=== PATIENT | male | born 1940 | race African-American/Black ===

== ENCOUNTER 2016-10-15 20:22 | Inpatient (IN) ==
[2016-10-15] MEDS ORDERED: hydrALAZINE 20 MG/1 ML VIAL IV STA (20:46)
[2016-10-15] MEDS ORDERED: ONDANSETRON ODT 4 MG TABLET PO STA (20:46)
[2016-10-15] MEDS ORDERED: NITROGLYCERIN 2% OINT 1 INCH/GM PACK TOP STA (20:49)
[2016-10-15] MEDS ORDERED: FUROSEMIDE 40 MG/4 ML VIAL IV STA (20:49)
--- NOTE | 2016-10-15 20:55 | Emergency Department Note ---
Livia Whyte Brittany, am scribing for, and in the presence of, Darrick Chandra MD 20:55. Corazon Whyte Charles R, MD, personally performed the services described in this documentation, ascribed by Carey Bhakta in my presence, and it is both accurate and complete . Arrival - Arrival Chief Complaint: Dizziness Stated Complaint: DIZZY/THROAT HURTS ED Nursing Triage Note: C/O Generalized weakness/dizziness/nausea/vomiting. 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 Pt reports that after he ate dinner the room started spinning and he started feeling weak. +active vomiting at time of triage- pt reports that this is the first time he has vomited. Pt reports that he was outdoors all day [place] Mode of Arrival: Wheelchair Limitations: No Limitations Source: Patient Time Seen by Provider: 10/15/16 20:40 - History of Present Illness HPI Narrative: This is a 76 y/o black male,who presents to the ED for further evaluation of hypertension which started earlier today. He states after eating dinner he started to become dizzy. He denies any SOB or chest pain. He states he no longer takes BP meds secondary to running out of them. He denies numbness or tingling to the extremities or face, but notes generalized weakness. Pt has no other complaints/pain in the ED at this time. Pt denies a PMHx. Pt denies a surgical Hx. Pt denies a family medical Hx. Pt denies a social Hx. Onset (ago): hour(s) (Earlier today) Consistency: constant Severity: moderate Allergies/Adverse Reactions: Allergies Allergy/AdvReac Type Severity Reaction Status Date / Time No Known Allergies Allergy Verified 10/15/16 20:28 Home Medications: Home Medications Medication Instructions Recorded Confirmed Type No Known Home Medications [No 10/15/16 10/15/16 History Known Home Medications] Medical,Surgical,& Family Hx - Social History Smoking Status: Never smoker Frequency of Alcohol Use: None Type of Drug Use: None Exam Vital Signs: Vital Signs Temperature 97.7 F 10/15/16 20:29 Pulse Rate 62 10/15/16 20:40 Respiratory Rate 18 10/15/16 20:40 Blood Pressure 210/127 10/15/16 20:40 O2 Sat by Pulse Oximetry 98 10/15/16 20:40 - General General appearance: alert, in no apparent distress - Head Head exam: Present: atraumatic, normocephalic, normal inspection - Eye Eye exam: Present: normal appearance, PERRL, EOMI. Absent: nystagmus, miosis, mydriasis - ENT ENT exam: Present: normal exam, normal oropharynx, mucous membranes moist, TM's normal bilaterally, normal external ear exam - Neck Neck exam: Present: normal inspection, full ROM, trachea midline. Absent: tenderness, meningismus, lymphadenopathy, thyromegaly - Chest Chest inspection: Present: normal inspection, symmetric chest wall rise. Absent : tenderness, rash, abscess - Respiratory Respiratory exam: Present: normal lung sounds bilaterally. Absent: prolonged expiratory phase, rales, respiratory distress, rhonchi, stridor, wheezes - Cardiovascular Cardiovascular exam: Present: normal rhythm, bradycardia, normal heart sounds. Absent: murmur, rubs, gallop, clicks, JVD - Abdominal Exam Abdominal exam: Present: soft, normal bowel sounds. Absent: distention, tenderness, guarding, rebound, rigidity - Rectal Exam Rectal exam: Present: deferred - Extremities Exam Extremities exam: Present: normal capillary refill (+2 pitting edema). Absent: normal inspection, full ROM, tenderness, pedal edema, joint swelling, calf tenderness - Back Exam Back exam: Present: normal inspection, full ROM. Absent: tenderness, muscle spasm, rashes - Neurological Exam Neurological exam: Present: alert, oriented X3, CN II-XII intact. Absent: motor sensory deficit - Psychiatric Psychiatric exam: Present: normal affect, normal mood. Absent: depressed, agitated, anxious, flat affect, manic - Skin Skin exam: Present: warm, dry, intact, normal color. Absent: rash, cyanosis, diaphoresis, erythema, pallor, mottled Course - Consultations Consultation #1: Hospitalist will admit patient Time: 23:01 Results - Labs CBC & BMP: 10/15/16 20:52 10/15/16 20:52 Lab Results: I have reviewed the patients labs Critical Care Time Critical Care Time: Yes Total Critical Care Time: 60 Disposition Clinical Impression: Hypertensive urgency, Near syncope, Elevated troponin, Renal insufficiency Case discussed with: patient, patient's family Disposition: Still a Patient Condition: Stable Time of Disposition: 23:04
[2016-10-15] MEDS ORDERED: NITROGLYCERIN 2% OINT 1 INCH/GM PACK TOP ONE (21:03)
[2016-10-15] MEDS ORDERED: FUROSEMIDE 40 MG/4 ML VIAL ONE (21:04)
[2016-10-15] MEDS ORDERED: ONDANSETRON ODT 4 MG TABLET PO ONE (21:04)
[2016-10-15] MEDS ORDERED: hydrALAZINE 20 MG/1 ML VIAL ONE (21:04)
[2016-10-15 21:19] LABS: Basophils % 0.6 % (0.0-0.8); Eosinophils # 0.3 10*3/uL (0.0-0.87); Hematocrit 39.7 VOL% (42.0-52.0); Hemoglobin 13.1 GM/DL (14.0-18.0); Immature Granulocytes % 0.2 %; Immature Granulocytes Absolute 0.01 #; Lymphocytes # 2.7 10*3/uL (1.4-4.0); Lymphocytes % 41.2 % (21.2-54.2); Mean Corpuscular Hemoglobin 30 PG (27-34); Mean Corpuscular Volume 89.8 FL (87-102); Mean Platelet Volume 10.6 FL (9.6-12.0); Monocytes # 0.6 10*3/uL (0.11-0.8); Monocytes % 8.5 % (1.7-12.7); Neutrophils % 45.5 % (38.7-73.9); Platelet Count 236 T/CUMM (130-400); Red Blood Count 4.42 MC/CUMM (3.8-5.5); Red Cell Distribution Width 15.6 % (9.3-17.3); White Blood Count 6.6 T/CUMM (4-12)
[2016-10-15 21:29] LABS: PT Patient Result 10.5 SECS
[2016-10-15 21:49] LABS: Albumin 3.9 G/DL (3.4-5.0); Bilirubin,Total 0.4 MG/DL (0.2-1.0); Calcium 8.7 MG/DL (8.5-10.1); Magnesium 2.4 MG/DL (1.8-2.4); Osmolality,Calculated 294.7 MOS/KG (273-304); Potassium 3.4 MMOL/L (3.5-5.1); Total Protein 7.5 G/DL (6.4-8.3); Troponin I Only 0.054 NG/ML (0.00-0.045)
[2016-10-15 22:20] LABS: Apearance,Urine CLEAR (Clear); Bilirubin,Urine Negative (Negative); Blood, Urine Negative (Negative); Glucose,Urine (UA) Negative (Negative); Ketones,Urine Negative (Negative); Nitrite,Urine Negative (Negative); Protein,Urine Negative; Urine Color Colorless (Yellow); Urine Specific Gravity 1.005 (1.001-1.035); Urine Urobilinogen < 2.0 EU/DL (0.2-1.0); WBC,Urine <1 /HPF (0-6)
[2016-10-15 22:31] LABS: Barbiturates Screen,Urine Negative (Negative); Benzodiazepines Screen,Urine Negative (Negative); Cannabinoid Screen,Urine Negative (Negative); Opiate Screen,Urine Negative (Negative); Phencyclidine Screen,Urine Negative (Negative)
[2016-10-15] MEDS ORDERED: METHOCARBAMOL 1,000 MG/10 ML VIAL IV STA (22:47)
[2016-10-15] MEDS ORDERED: POTASSIUM CHLORIDE 20 MEQ TABLET PO STA (22:47)
[2016-10-15] MEDS ORDERED: ONDANSETRON 4 MG/2 ML VIAL IV STA (22:48)
[2016-10-15] MEDS ORDERED: METHOCARBAMOL 1,000 MG/10 ML VIAL ONE (22:51)
[2016-10-15] MEDS ORDERED: ONDANSETRON 4 MG/2 ML VIAL ONE (22:51)
[2016-10-15] MEDS ORDERED: POTASSIUM CHLORIDE 20 MEQ TABLET PO ONE (22:51)
[2016-10-15] MEDS ORDERED: niCARdipine 25 MG/10 ML VIAL IV ONE (23:47)
[2016-10-15] MEDS ORDERED: ALBUTEROL/IPRATROPIUM 3 ML NEB RESP TX PRN (23:59)
[2016-10-15] MEDS ORDERED: ONDANSETRON 4 MG/2 ML VIAL IV PRN (23:59)
[2016-10-15] MEDS: niCARdipine INJ 25 MG in SODIUM CHLORIDE 0.9% 240 ML IV SCH (23:59)
[2016-10-15] MEDS ORDERED: MORPHINE 2 MG/1 ML SYRINGE IV PRN (23:59)
[2016-10-15] MEDS ORDERED: ACETAMINOPHEN 325 MG TABLET PO PRN (23:59)
--- NOTE | 2016-10-15 23:59 | Hospitalist History & Physical ---
Assessment and Plan (1) Hypertensive emergency Status: Acute Current Visit: Yes (2) Hypertensive encephalopathy Status: Acute Current Visit: Yes (3) Near syncope Status: Acute Current Visit: Yes (4) Acute renal failure due to tubular necrosis Status: Acute Current Visit: Yes (5) Uncontrolled hypertension Status: Acute Current Visit: Yes (6) Medical non-compliance Status: Acute Assessment and plan: Plan: Admit ICU, start Cardene infusion Start lisinopril/HCTZ 20/25 mg p.o. daily Repeat cardiac enzymes and renal function panel in the morning No focal neuro deficits, head CT appears benign Constellation of symptoms likely due to his very poorly controlled hypertension Current Visit: Yes History of Present Illness Chief complaint: Near syncope, dizziness, elevated blood pressure History of present illness: Mr. Juan is a 76 year old male with long-standing hypertension, was followed at [facility] until a few months ago when he stopped taking his blood pressure medication "because they were not working." Comes in tonight with a blood pressure of 210s over 110s, with near syncopal episode at home along with dizziness. This is been going on for the last 2 weeks. Worsened in intensity today. He became nauseated and vomited 1 at home and again in the ER. He took vinegar at home thinking that this might help his symptoms. It did not. He denies headache, visual changes, chest discomfort, or shortness of breath. Over the last 2 weeks he has had episodes where he feels like he is going to pass out, he lies down, then feels better. Tonight this was not the case. He is requiring a Cardene infusion and will be monitored in the CCU. Home Medications Medication Instructions Recorded Confirmed Type No Known Home Medications [No 10/15/16 10/15/16 History Known Home Medications] Allergies Allergy/AdvReac Type Severity Reaction Status Date / Time No Known Allergies Allergy Verified 10/15/16 20:28 Medical,Surgical,& Family Hx - Medical History Cardio: History of: Hypertension (Off meds for 3 or 4 months "because they were not working") Endocrine: No history of: Diabetes Mellitus (NIDDM) Rheumatology: History of;: Gout Respiratory: No history of: COPD - Surgical History Abdominal Surgeries: Surgical HX of: Hernia Repair - Family History Family History: Reports;: Family Hypertension - Social History Smoking Status: Never smoker Frequency of Alcohol Use: None Type of Drug Use: None Marital Status: Unknown Functional capacity: independent ambulation Review of systems: A 12 point review of systems is negative except as specified in the HPI Exam - Constitutional Vitals: Period Temp Pulse Resp BP Sys/Mercado Pulse Ox Last 24 Hr 97.7 F 62-83 18-18 210-217/127-145 98-99 Exam: EXAM: CONSTITUTIONAL: non toxic, NAD HEENT: NC, AT, OP benign, LAUREN, EOMI CV: RRR no m/g/r RESP: clear B/L, no w/r/r GI: abd soft, NT, ND, +bowel sounds INTEGUMENTARY: no lesions or rash EXTREMITIES: 1+ pitting edema bilateral lower extremities NEURO: no focal deficits PSYCH: unremarkable, A/O x3 Results - Labs CBC & BMP: 10/15/16 20:52 10/15/16 20:52 Lab Results: I have reviewed the past 24 hour labs - EKG EKG shows: sinus rhythm - Diagnostic Findings Procedure: Chest x-ray: image reviewed by me, CT: image reviewed by me
[2016-10-16] MEDS ORDERED: CYCLOBENZAPRINE 10 MG TABLET PO PRN (03:45)
--- NOTE | 2016-10-16 04:55 | EKG Report ---
Stationary ECG Study [facility] ER Test Date: 10/15/2016 8:44:35 PM Pat Name: REANNA LOPEZ Department: Room: 127 Gender: M Visual Effects Artist: BAILEE : 1940 Requested by: Darrick Francis Order Number: [id number] Patel MD: LETTY CARREON Intervals [place] Rate: 60 P: 88 AK: 176 QRS: 8 QRSD: 97 T: 58 QT: 451 QTc: 451 Interpretive Statements SINUS RHYTHM VOLTAGE CRITERIA FOR LVH Electronically Signed On 10-16-16 10:34:25 CDT by LETTY CARREON [email or web address]
--- NOTE | 2016-10-16 06:13 | CT Report ---
Exam: CT scan of brain without contrast Date: 10/15/2016 Indication: Dizziness Comparison: None Patient's classification: Emergency department Technical: Images were obtained from the skull base to the vertex without the use of intravenous contrast. Dose reduction was performed with decreasing kv and mA and automated exposure Total DLP: 997.9 mGy*cm Findings: The study was initially reviewed by [facility]. Decreased attenuation in the periventricular and subcortical white matter regions are present bilaterally. The brainstem and cerebellum are intact. A component of the cortical atrophy is also present. Vascular plaque is present within the vertebral arteries and the internal carotid arteries. The paranasal sinuses suggest small polyps or retention cysts within the left maxillary antrum. Similar findings are present in the right ethmoid air cells. Remaining paranasal sinuses globes and cell and mastoids are intact. Calvarium is unremarkable. Impression: 1. Small vessel ischemic change 2. Polyps or retention cysts within the left maxillary sinus and right ethmoid air cells. 3. Atrophy 4. No acute hemorrhage infarction or mass effect PROCEDURE INTERPRETED AT [facility] DEPARTMENT OF RADIOLOGY Final Report Signed by: Dr. Adan Gaines
[2016-10-16 06:33] LABS: Basophils % 0.2 % (0.0-0.8); Hematocrit 40.5 VOL% (42.0-52.0); Hemoglobin 13.2 GM/DL (14.0-18.0); Immature Granulocytes % 0.4 %; Immature Granulocytes Absolute 0.04 #; Lymphocytes # 1.4 10*3/uL (1.4-4.0); Lymphocytes % 12.5 % (21.2-54.2); Mean Corpuscular HGB Conc 32.6 GM/DL (32-36); Mean Corpuscular Hemoglobin 29 PG (27-34); Mean Corpuscular Volume 88.4 FL (87-102); Mean Platelet Volume 10.1 FL (9.6-12.0); Monocytes # 0.6 10*3/uL (0.11-0.8); Monocytes % 5.4 % (1.7-12.7); Neutrophils # 8.9 10*3/uL (1.4-7.4); Neutrophils % 81.5 % (38.7-73.9); Platelet Count 274 T/CUMM (130-400); Red Blood Count 4.58 MC/CUMM (3.8-5.5); Red Cell Distribution Width 15.7 % (9.3-17.3); White Blood Count 10.9 T/CUMM (4-12)
[2016-10-16 06:44] LABS: Calcium 9.6 MG/DL (8.5-10.1); Magnesium 2.3 MG/DL (1.8-2.4); Potassium 3.9 MMOL/L (3.5-5.1); Risk Ratio 3.32; VLDL CHOLESTEROL 30.8 MG/DL
[2016-10-16 06:45] LABS: Troponin I Only 0.055 NG/ML (0.00-0.045)
[2016-10-16] MEDS: PANTOPRAZOLE 40 MG TABLET PO SCH (08:08)
--- NOTE | 2016-10-16 08:17 | XRay Report ---
Exam: XR chest 1V portable Date: 10/15/2016 8:46 PM Indication: Shortness of breath Comparison: None Technical: AP portable Findings: Mild cardiomegaly present. Minimal ASVD. No obvious infiltrate or effusion. Mediastinum and bony structures are intact. Impression: 1. Mild cardiomegaly without decompensation. PROCEDURE INTERPRETED AT [facility] DEPARTMENT OF RADIOLOGY Final Report Signed by: Dr. Adan Gaines
[2016-10-16] MEDS ORDERED: LISINOPRIL/HCTZ 20-25 MG TABLET PO SCH (09:00)
[2016-10-16] MEDS: niCARdipine INJ 25 MG in SODIUM CHLORIDE 0.9% 240 ML IV SCH ×2 (09:38→17:44)
--- NOTE | 2016-10-16 10:00 | Hospitalist Progress Note ---
Assessment and Plan (1) possible stroke Status: Acute Assessment and plan: 1)HTN urgency- on cardene with BP 170-190/100s. start norvasc and metoprolol in addition to the prinzide he started this morning. taper off Cardene as Bp allows. troponins are 0.5, stable. EKG with NSR, no ST or T changes. No chest pain or shortness of breath. 2)possible stroke- echo, MRI brain, MRA carotids. consult to neuro. consult to ST/PT/OT. 3)hoarse voice and poor swallow after vinegar- his posterior pharynx is irritated. Consult ENT 4)obesity 5)JIAN- ATN- recheck in am. baseline unknown. 6)consider over heating as possible cause also- he was outside and did become hot. 7)low potassium with muscle cramping- potassium replaced- give another dose and monitior in am. check mag, prns for cramps, rehydrate. Had lasix in ER- Current Visit: Yes (2) Hypertensive urgency Status: Acute Current Visit: Yes (3) Near syncope Status: Acute Current Visit: Yes (4) Elevated troponin Status: Acute Current Visit: Yes (5) Acute renal failure due to tubular necrosis Status: Acute Current Visit: Yes (6) Medical non-compliance Status: Acute Current Visit: Yes Hospitalist: Subjective Interval history: Mr Juan's symptoms started after mowing the yard yesterday- when he came in he was very hot and became diaphroretic then nauseated and presyncopal at which point he took vinegar. He is having trouble swallowing today which he blames on the vinegar and thinks it has made his voice hoarse. There is a subtle change in his neuro exam today with mild left face droop, forehead weakness, and left handicapped teacher weakness with the voice adn swllwing compalints - I will order MRI of brain to r/o stroke. Also as ENT to see him for his voice. BP remains high. nurses calling for home meds. Exam - Constitutional Vitals: Period Temp Pulse Resp BP Sys/Mercado Pulse Ox Last 24 Hr 96.1 F-97.7 F 62-92 13-24 153-217/70-145 93-99 General appearance: no acute distress, over weight - Head Head exam: Present: normocephalic, atraumatic - Eye Eye exam: Present: other (cataracts right>left pupils reactive) - ENT ENT exam: Absent: normal oropharynx (posterior pharynx is irritated) - Respiratory Respiratory exam: Present: clear to auscultation bilaterally - Cardiovascular Cardiovascular exam: Present: regular rate and rhythm. Absent: diastolic murmur , systolic murmur - GI/Abdominal GI/Abdominal exam: Present: normal bowel sounds, soft. Absent: tenderness - Extremities Exam Extremities exam: Present: edema (1+) - Neurological Exam Neurological exam: Present: alert, oriented X3, motor sensory deficit (left handicapped teacher strength weaker than right, left mouth droop and weakness in wrinkling forehead on left.) - Psychiatric Psychiatric exam: Present: normal affect. Absent: agitated - Skin Skin exam: Present: warm, dry Results - Labs CBC & BMP: 10/16/16 06:13 10/16/16 06:13
[2016-10-16] MEDS ORDERED: POTASSIUM CHLORIDE 20 MEQ TABLET PO ONE (10:12)
[2016-10-16] MEDS: amLODIPine 10 MG TABLET PO SCH (10:13)
[2016-10-16] MEDS: METOPROLOL TARTRATE 25 MG TABLET PO SCH ×2 (10:13→20:00)
[2016-10-16] MEDS ORDERED: hydrALAZINE 20 MG/1 ML VIAL IV PRN (13:39)
[2016-10-16] MEDS ORDERED: NITROGLYCERIN 2% OINT 1 INCH/GM PACK TOP ONE (13:48)
[2016-10-16] MEDS: SODIUM CHLORIDE 0.45% 1,000 ML IV SCH (14:45)
--- NOTE | 2016-10-16 15:02 | Magnetic Resonance Report ---
History: Near syncopal episode. Hypertensive encephalopathy. Potential stroke. Nausea and vomiting Date: 10/16/2016 Study: MRI brain without contrast Comparison exam: No previous The brain was imaged in 3 planes on the 1.2 Sushma open magnet without IV contrast, to include diffusion, T2, FLAIR, gradient-echo, and T1-weighted sequences. The ventricles are midline in position without evidence of hydrocephalus. There is no Chiari I malformation. There is no gross pituitary mass. When accounting for artifact, no convincing evidence of acute ischemia is seen on the diffusion sequence. There is no mass effect or parenchymal hemorrhage. There is a moderate amount of patchy ill-defined increased FLAIR and T2 signal in the periventricular white matter without mass effect compatible with changes of small vessel disease. Changes of small vessel disease also noted in the lenticular nuclei. There is a small amount of patchy ill-defined increased FLAIR and T2 signal in the amirah without mass effect compatible with changes of small vessel disease. There is no extra-axial hematoma. There is a normal flow void in the superior sagittal sinus. There is no gross flow abnormality in the [place] area. There is no obvious cerebellopontine angle mass. There is mild mastoid effusion bilaterally, right more than left. There is some mucosal polyp or mucous retention cyst formation in the left maxillary sinus. Impression: No convincing area of acute ischemia. Periventricular and pontine small vessel disease. Chronic sinus disease. Mild bilateral mastoid effusion PROCEDURE INTERPRETED AT [facility] DEPARTMENT OF RADIOLOGY Final Report Signed by: Dr. Josiane Wiseman
--- NOTE | 2016-10-16 15:07 | Magnetic Resonance Report ---
History: Syncope. Potential stroke. Nausea and vomiting. Hypertensive emergency Date: 10/16/2016 Study: MRA neck without contrast Comparison exam: No previous similar A 3-D [id number] MRA of the neck was performed without IV contrast on the 1.2 Sushma open magnet. In addition to axial source images, 3-D maximum intensity projection images were also archived and evaluated. The study has some motion artifact limitation of a mild to moderate degree. There is no obvious high-grade stenosis at the origins of the great vessels. There is antegrade flow in the right vertebral artery. Flow is not identified in the left vertebral. There is no obvious high-grade stenosis of either common carotid artery. There is 0-30% diameter reduction narrowing of either internal carotid artery. The normal right ICA measures 3.8 mm; the normal left measures 4.2 mm. There is no obvious stenosis at the origins of the external carotid arteries. Impression: No obvious high-grade internal carotid artery stenosis where seen. Motion artifact limitation. Antegrade flow within the right vertebral artery; flow in the left vertebral artery is not confirmed PROCEDURE INTERPRETED AT [facility] DEPARTMENT OF RADIOLOGY Final Report Signed by: Dr. Josiane Wiseman
--- NOTE | 2016-10-16 16:05 | Neurology Consult Note ---
History of Present Illness History of present illness: Mr. Juan is a 76 year old right-handed -[place] gentleman with long- standing history of hypertension, admitted to the hospital with accelerated hypertension with near syncopal episode at home along with dizziness. He was followed at [facility] until a few months ago when he stopped taking his blood pressure medication because he thought it was not working. At the time of admission he had a blood pressure of 210s over 110s. This is been going on for the last 2 weeks. Worsened in intensity the day of admission. He became nauseated and vomited 1 at home and again in the ER. He denies headache , visual changes, chest discomfort, or shortness of breath. Over the last 2 weeks he has had episodes where he feels like he is going to pass out, he lies down, then feels better. He underwent MRI of the brain which revealed no acute abnormalities. MRA of the carotid arteries looks okay. Triglycerides and cholesterol are up. EKG shows sinus rhythm. Home Medications Medication Instructions Recorded Confirmed Type No Known Home Medications [No 10/16/16 10/16/16 History Known Home Medications] Allergies Allergy/AdvReac Type Severity Reaction Status Date / Time No Known Allergies Allergy Verified 10/15/16 20:28 12 point system: reviewed and no additional remarkable complaints except as stated Medical,Surgical,& Family Hx - Medical History Cardio: History of: Hypertension (Off meds for 3 or 4 months "because they were not working") Endocrine: No history of: Diabetes Mellitus (NIDDM) Rheumatology: History of;: Gout Respiratory: No history of: COPD - Surgical History Abdominal Surgeries: Surgical HX of: Hernia Repair - Family History Family History: Reports;: Family Cancer (Dad age 75), Family Hypertension Denies;: Family Diabetes, Family Heart Disease, Family Hematology, Family Psychiatric Problems, Family Stroke - Social History Smoking Status: Never smoker Frequency of Alcohol Use: None Type of Drug Use: None Exam - Constitutional Vitals: Period Temp Pulse Resp BP Sys/Mercado Pulse Ox Last 24 Hr 96.1 F-97.7 F 62-92 13-24 141-223/70-145 85-99 Exam: GENERAL: Patient is in no acute distress. NECK: Neck is supple. There is no JVD. No carotid bruits present. No thyroid masses. CVS: First and second heart sounds are normal. There is no S3 present. Regular rate and rhythm. RESPIRATORY: Lungs are clear to auscultation without any rales or rhonchi. ABDOMEN: Soft and non-tender. Bowel sounds are present. There is no hepatosplenomegaly. EXT: There is no palpable edema. Peripheral pulses are present. Skin: No rashes Central Nervous system: General: Alert, awake and Oriented x 3 Speech: Fluent Comprehension: Intact and normal Facial expressions: Normal Cranial Nerves: CN1/Olfactory: Normal CN II/ Optic: Normal, Visual Redman unreliable CN III, and : LAUREN & EOMI CN V: Normal & intact CN VII: face is symmetric CNVIII: Normal CN XI/X/XI/XII: Intact and Normal Motor: Bulk and Tone is normal. Strength in the right 5/5 Strength in the left 5/5 Sensory: Grossly intact for all the modalities of PP, LT and temp sense Reflexes: 1+ and symmetrical Cerebellar function: Normal finger to nose and heel to rivera testing. Toes: Equivocal Gait: Not tested at this time Results - Labs CBC & BMP: 10/16/16 06:13 10/16/16 06:13 Assessment and Plan (1) Near syncope Status: Acute Assessment and plan: This is likely due to fluctuation in blood pressure and accelerated hypertension. No evidence of a stroke, TIAs, epilepsy or seizures. Agree with current management of aggressive blood pressure treatment Add aspirin a day Thank you for the consult Current Visit: Yes
--- NOTE | 2016-10-16 16:44 | ECHO Report ---
Drake Brandon Exam Date: 10/16/2016 14:17 Referring Physician: Technologist: aga Frausto ARDMS, RVT Age: 76 Ht (in): 74 Wt (lb): 235 Gender: M Exam Location: [facility] Echo Indications: Syncope and collapse, Essential (primary) hypertension, Acute kidney failure with tubular necrosis, Possible CVA, Elevated troponin BP: 182 / 95 HR: 68 Rhythm: Sinus Technical Quality: Fair IMPRESSIONS Normal left ventricular cavity size. Left ventricular ejection fraction is estimated at 60 %. Grade I/IV diastolic dysfunction (abnormal relaxation filling pattern), normal to mildly elevated filling pressures. Mildly increased right ventricular size. Moderately increased right atrial size. Moderately increased left atrial size. Morphologically normal mitral valve. Mild mitral valve regurgitation. Aortic valve sclerosis. No aortic valve regurgitation. Severe tricuspid valve regurgitation. PAP60 mmHG. Mild pulmonary valve regurgitation. Normal pericardium without effusion. Normal ascending aorta dimension. MEASUREMENTS (Male / Female) Normal Values 2D ECHO LV Diastolic Diameter PLAX 5.7 cm 4.2 - 5.9 / 3.9 - 5.3 cm LV Systolic Diameter PLAX 3.2 cm LV Fractional Shortening PLAX 43.0 % IVS Diastolic Thickness 1.2 cm 0.6 - 1.0 / 0.6 - 0.9 cm LVPW Diastolic Thickness 1.3 cm 0.6 - 1.0 / 0.6 - 0.9 cm RV Internal Dim ED PLAX 4.0 cm Aortic Root Diameter 3.7 cm LA Systolic Diameter LX 3.7 cm 3.0 - 4.0 / 2.7 - 3.8 cm DOPPLER TR Peak Velocity 349.0 cm/s TR Peak Gradient 48.7 mmHg FINDINGS Left Ventricle Grade I/IV diastolic dysfunction (abnormal relaxation filling pattern), normal to mildly elevated filling pressures. Normal left ventricular cavity size. Mild left ventricular hypertrophy. Left ventricular ejection fraction is estimated at 60 %. Right Ventricle Mildly increased right ventricular size. Right Atrium Moderately increased right atrial size. Left Atrium Moderately increased left atrial size. Mitral Valve Morphologically normal mitral valve. Mild mitral valve regurgitation. Aortic Valve Aortic valve sclerosis. No aortic valve regurgitation. Tricuspid Valve Morphologically normal tricuspid valve. Severe tricuspid valve regurgitation. PAP60 mmHG. Pulmonic Valve Morphologically normal pulmonic valve. Mild pulmonary valve regurgitation. Pericardium Normal pericardium without effusion. Aorta Normal ascending aorta dimension. Ever Plavac (Electronically Signed) Final Date: 16 October 2016 16:43
--- NOTE | 2016-10-16 16:59 | Consultation ---
Assessment and Plan - Time spent with patient Time spent with patient: Less than 30 minutes (1) Unilateral vocal cord paralysis Status: Acute Assessment and plan: Left vocal fold paralysis versus paresis of unknown etiology. I held his diet until evaluated by speech therapy with bedside swallowing evaluation from reports of the note appear that he is safe to proceed with the diet and will continue to receive speech and swallow therapy during his stay here. His left vocal fold is paralyzed in the midline so his voice while different is still present and is probably only noticeably different to his family and him. Since his airway seems to be safe for bedside swallow therapy I am okay with him continuing to have a diet. We will potentially do some additional imaging to rule out some other possibilities of left vocal fold paralysis but this may be idiopathic. Thank you very much for this consult I will continue to follow this patient while he is in the hospital Current Visit: Yes (2) Dysphasia Status: Acute Current Visit: Yes History of Present Illness - Data of Consult Patient: new to practice Consult date: 10/16/16 - Consult Narrative Reason for consult: Dysphasia and odynophagia History of present illness: Mr. Juan is a 76 year old male with nondescript left-sided weakness and multiple medical comorbidities he ultimately presented to the ER after having a sore throat and trying to treated by drinking "vinegar" this exacerbated the situation and caused him to have a coughing episode and he presented to the ER where he was evaluated and subsequently admitted. He has continued to have problems with all types of food getting the food down and not choking nothing seems to make it better or worse. ENT is consulted for evaluation and treatment CC: Linsey De Souza MD - Home Medications and Allergies Home Medications: Home Medications Medication Instructions Recorded Confirmed Type No Known Home Medications [No 10/16/16 10/16/16 History Known Home Medications] Allergies/Adverse Reactions: Allergies Allergy/AdvReac Type Severity Reaction Status Date / Time No Known Allergies Allergy Verified 10/15/16 20:28 12 point system: reviewed and no additional remarkable complaints except as stated Medical,Surgical,& Family Hx - Medical History Cardio: History of: Hypertension (Off meds for 3 or 4 months "because they were not working") Endocrine: No history of: Diabetes Mellitus (NIDDM) Rheumatology: History of;: Gout Respiratory: No history of: COPD - Surgical History Abdominal Surgeries: Surgical HX of: Hernia Repair - Family History Family History: Reports;: Family Cancer (Dad age 75), Family Hypertension Denies;: Family Diabetes, Family Heart Disease, Family Hematology, Family Psychiatric Problems, Family Stroke - Social History Smoking Status: Never smoker Frequency of Alcohol Use: None Type of Drug Use: None Exam - Constitutional Vitals: Period Temp Pulse Resp BP Sys/Mercado Pulse Ox Last 24 Hr 96.1 F-98.3 F 62-92 13-24 141-223/70-145 85-99 General appearance: no acute distress, over weight - Head Head exam: Present: normal inspection, normocephalic - Eye Eye exam: Present: EOMI Pupils: Present: LAUREN - ENT ENT exam: Present: normal exam, normal external ear exam, normal oropharynx, other (Bedside laryngoscopy reveals left sided paralysis versus paresis of unknown origin. Reportedly there is additional left-sided weakness which would be consistent with potentially this new left-sided cranial nerve X deficit. I assume also that there is some loss or change of sensation on the left side and this is probably also causing some possible microaspiration I will defer to speech therapy to do a bedside swallow eval to determine what is his best diet or if he can have a diet. The vocal fold is paralyzed or paresis at this point in the midline so his voice is good and he does seem to be able to protect his airway well) - Expanded ENT Exam Mouth exam: Present: moist Throat exam: Present: normal inspection - Neck Neck exam: Present: normal inspection - Respiratory Respiratory exam: Present: other (No shortness of breath or difficulty breathing ) - GI/Abdominal GI/Abdominal exam: Present: soft - Extremities Exam Extremities exam: Present: normal inspection, normal capillary refill - Neurological Exam Neurological exam: Present: alert, oriented X3, other (Loss of left cranial nerve #10 no other gross cranial nerve deficits higher up cranial nerve XII appears to be intact 11 is questionable but appears intact as well) - Psychiatric Psychiatric exam: Present: normal affect, normal mood - Skin Skin exam: Present: normal color, warm Results - Labs CBC & BMP: 10/16/16 06:13 10/16/16 06:13 Lab Results: I have reviewed the past 24 hour labs
[2016-10-16] MEDS ORDERED: NITROGLYCERIN 2% OINT 1 INCH/GM PACK TOP SCH (18:00)
[2016-10-16] MEDS: NITROGLYCERIN 2% OINT 1 INCH/GM PACK TOP SCH ×2 (18:17→23:41)
--- NOTE | 2016-10-16 18:54 | CT Report ---
Exam: CT soft tissue neck with and without contrast Date: 10/16/2016 Comparison: None Reason: Left vocal cord paralysis Technique: Axial images of the soft tissue neck were obtained with and without the use of 80 cc of Omniscan 350 IV contrast. Sagittal and coronal reformatted images were also acquired. Total DLP was 711.40 mGy*cm. Findings: No acute findings in the visualized brain, temporal bones, orbits, parotid glands, submandibular glands, nasopharynx, oropharynx, thyroid gland and, and lung apices. Polypoidal mucosal findings in the paranasal sinuses. Asymmetry in the position of the left vocal cord with asymmetric density. Tortuosity of the arteries with arterial calcifications with no hemodynamically significant carotid stenosis. No flow identified in the left vertebral artery. Degenerative changes are noted in the cervical spine. Impression: Findings which can be seen with a left vocal cord paralysis which makes it difficult to exclude a small mass. Correlation with endoscopic findings recommended. No measurable mass is identified. 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 This CT exam was performed using one or more the following dose reduction techniques: Automatic exposure control, adjustment of the MA and/or KV according to patient size, or use of iterative reconstruction technique. PROCEDURE INTERPRETED AT [facility] DEPARTMENT OF RADIOLOGY Final Report Signed by: Dr. Jill López
[2016-10-17] MEDS: niCARdipine INJ 25 MG in SODIUM CHLORIDE 0.9% 240 ML IV SCH (01:37)
[2016-10-17] MEDS: SODIUM CHLORIDE 0.45% 1,000 ML IV SCH (03:08)
[2016-10-17 05:23] LABS: Calcium 8.4 MG/DL (8.5-10.1); Magnesium 2.5 MG/DL (1.8-2.4); Osmolality,Calculated 284.1 MOS/KG (273-304); Potassium 4.2 MMOL/L (3.5-5.1)
[2016-10-17] MEDS: NITROGLYCERIN 2% OINT 1 INCH/GM PACK TOP SCH ×3 (05:41→19:35)
[2016-10-17] MEDS: ASPIRIN EC 81 MG TABLET PO SCH (08:09)
[2016-10-17] MEDS: amLODIPine 10 MG TABLET PO SCH (08:09)
[2016-10-17] MEDS: METOPROLOL TARTRATE 25 MG TABLET PO SCH ×2 (08:09→20:40)
[2016-10-17] MEDS: PANTOPRAZOLE 40 MG TABLET PO SCH (08:09)
[2016-10-17] MEDS: LISINOPRIL/HCTZ 20-25 MG TABLET PO SCH ×2 (08:10→20:40)
--- NOTE | 2016-10-17 11:16 | Hospitalist Progress Note ---
Assessment and Plan (1) possible stroke Status: Acute Assessment and plan: 1)HTN urgency- resolved- off cardene since 8p last night. His Bp looks good- mostly 120-140 over 80-90. increase the prinzide to BID today. troponins are 0.5, stable. EKG with NSR, no ST or T changes. No chest pain or shortness of breath. 2)stroke ruled out- echo has EF 60%, grade 1 diastolic dysfunction. MRI brain with nothing acute, MRA carotids without sig disease.Dr Zheng thinks his neuro changes were due to fluctuations in BP. consult to ST/PT/OT. 3)hoarse voice and poor swallow after vinegar- appreciate Dr Liu's input. He has paralyzed left vocal cord but his voice is stronger and speech clearer today. CT neck with possible mass- await Dr Liu's eval. 4)obesity 5)JIAN- ?ATN v CKD- recheck in am. baseline unknown. 6)consider over heating as possible cause also- he was outside and did become hot. 7)low potassium- resolved after replacement. 8)muscle cramping- potassium replaced- his cramps have resolved. 9)transfer to floor. Current Visit: Yes (2) Hypertensive urgency Status: Acute Current Visit: Yes (3) Near syncope Status: Acute Current Visit: Yes (4) Elevated troponin Status: Acute Current Visit: Yes (5) Acute renal failure due to tubular necrosis Status: Acute Current Visit: Yes (6) Medical non-compliance Status: Acute Current Visit: Yes Hospitalist: Subjective Interval history: Mr Juan is doing well this morning. He is talking more clearly and swallowing better. He denies shortness of breath or pain. Exam - Constitutional Vitals: Period Temp Pulse Resp BP Sys/Mercado Pulse Ox Last 24 Hr 96.5 F-98.3 F 62-92 13-26 111-223/62-152 85-99 General appearance: normal weight, no acute distress - Head Head exam: Present: normocephalic, atraumatic - Eye Eye exam: Present: EOMI. Absent: scleral icterus Pupils: Present: LAUREN - Expanded ENT Exam Mouth exam: Present: moist Throat exam: Present: normal inspection - Respiratory Respiratory exam: Present: clear to auscultation bilaterally - Cardiovascular Cardiovascular exam: Present: regular rate and rhythm - GI/Abdominal GI/Abdominal exam: Present: normal bowel sounds, soft. Absent: tenderness - Extremities Exam Extremities exam: Absent: edema - Neurological Exam Neurological exam: Present: alert, oriented X3 - Skin Skin exam: Present: warm, dry Results - Labs CBC & BMP: 10/16/16 06:13 10/17/16 04:40 Lab Results: I have reviewed the past 24 hour labs
--- NOTE | 2016-10-17 14:29 | Progress Note ---
Assessment and Plan - Time spent with patient Time spent with patient: Less than 30 minutes (1) Unilateral vocal cord paralysis Status: Acute Assessment and plan: Left vocal fold paralysis versus paresis of unknown etiology. I held his diet until evaluated by speech therapy with bedside swallowing evaluation from reports of the note appear that he is safe to proceed with the diet and will continue to receive speech and swallow therapy during his stay here. His left vocal fold is paralyzed in the midline so his voice while different is still present and is probably only noticeably different to his family and him. Since his airway seems to be safe for bedside swallow therapy I am okay with him continuing to have a diet. We will potentially do some additional imaging to rule out some other possibilities of left vocal fold paralysis but this may be idiopathic. Thank you very much for this consult I will continue to follow this patient while he is in the hospital 10/17/[address] and the radiologist findings it is plausible that a left vertebral artery occlusion caused a medullary/brainstem small infarct or TIA that would have knocked out the central portion of the vagus nerve that could explain the left-sided paralysis. He is currently guarding his airway well with swallowing and he feels his voice is improving. I see no reason to escalate treatment. I would like to see the patient in follow-up 2 weeks from discharge to visualize his vocal fold movement under stroboscopy as if this is a transient attack it may warrant him having another dedicated vertebral vascular study but I would defer this judgment to neurology and potentially interventional radiology. I did discuss this with the patient but I clarified that I would defer the judgment of to rather not this was the pathophysiology of what we're seen to the neurologist. He will follow-up in 2 weeks in the office. Thank you very much for this consult I will sign off on this patient if there is any additional questions or concerns please feel free to contact me Current Visit: Yes (2) Dysphasia Status: Acute Current Visit: Yes Family Medicine PN Sub Interval history: Follow-up from yesterday's encounter regarding left vocal fold immobility/ paralysis/paresis consistent with his oropharyngeal symptoms. Patient notes improvement of his sore throat and he feels his voice is improving and the sore throat and pain has decreased markedly. He has had no exacerbations of pain per the patient. Patient has been moved upstairs this ready to go home which will most likely take place in the next day or so or sooner. He has no new complaints. Exam (Progress Note) - Constitutional Vitals: Period Temp Pulse Resp BP Sys/Mercado Pulse Ox Last 24 Hr 96.5 F-98.3 F 61-92 13-26 105-184/62-152 88-99 General appearance: normal weight, no acute distress - Head Head exam: Present: normal inspection, normocephalic - Eye Eye exam: Present: EOMI Pupils: Present: LAUREN - ENT ENT exam: Present: normal exam, normal external ear exam, normal oropharynx - Neck Neck exam: Present: normal inspection - Respiratory Respiratory exam: Present: other (No shortness of breath or difficulty breathing ) - GI/Abdominal GI/Abdominal exam: Present: soft (Patient states he was able to have a bowel movement) - Extremities Exam Extremities exam: Present: normal inspection - Neurological Exam Neurological exam: Present: alert, oriented X3, CN II-XII intact - Psychiatric Psychiatric exam: Present: normal affect, normal mood - Skin Skin exam: Present: normal color, warm Results - Labs CBC & BMP: 10/16/16 06:13 10/17/16 04:40 Lab Results: I have reviewed the past 24 hour labs - Diagnostic Findings Procedure: CT: pending, image reviewed by me, report reviewed by me (I agree with radiologist interpretation no masses or lesions affecting the peripheral view of the left vagus nerve for contrast CT. I agree that on this study there appears to be suboptimal to no flow of the left vertebral artery is unknown whether this is acute or chronic) Specialty Discharge - Follow Up or Referrals Follow up with: Fabricio Liu DO [Physician] - 2 Weeks
--- NOTE | 2016-10-17 15:00 | Neurology Progress Note ---
Neurology - PN : Subjective Interval history: Patient seems to be doing really well. No new problems reported. Able to get up and walk. His speech is fluent. Exam (Progress Note) - Constitutional Vitals: Period Temp Pulse Resp BP Sys/Mercado Pulse Ox Last 24 Hr 96.5 F-98.3 F 61-92 13- 105-184/62-152 88-99 Exam: GENERAL: Patient is in no acute distress. NECK: Neck is supple. There is no JVD. No carotid bruits present. No thyroid masses. CVS: First and second heart sounds are normal. There is no S3 present. Regular rate and rhythm. RESPIRATORY: Lungs are clear to auscultation without any rales or rhonchi. ABDOMEN: Soft and non-tender. Bowel sounds are present. There is no hepatosplenomegaly. EXT: There is no palpable edema. Peripheral pulses are present. Skin: No rashes Central Nervous system: General: Alert, awake and Oriented x 3 Speech: Fluent Comprehension: Intact and normal Facial expressions: Normal Cranial Nerves: CN1/Olfactory: Normal CN II/ Optic: Normal, Visual Redman unreliable CN III, and : LAUREN & EOMI CN V: Normal & intact CN VII: face is symmetric CNVIII: Normal CN XI/X/XI/XII: Intact and Normal Motor: Bulk and Tone is normal. Strength in the right 5/5 Strength in the left 5/5 Sensory: Grossly intact for all the modalities of PP, LT and temp sense Reflexes: 1+ and symmetrical Cerebellar function: Normal finger to nose and heel to rivera testing. Toes: Equivocal Gait: Able to get up and walk Results - Labs CBC & BMP: 10/16/16 06:13 10/17/16 04:40 Assessment and Plan (1) Near syncope Status: Acute Assessment and plan: This is likely due to fluctuation in blood pressure and accelerated hypertension. No evidence of a stroke, TIAs, epilepsy or seizures. Agree with current management of aggressive blood pressure treatment Continue aspirin a day Sign off. Please call as needed. Current Visit: Yes Specialty Discharge - Follow Up or Referrals Follow up with: Fabricio Liu DO [Physician] - 2 Weeks
[2016-10-17] MEDS: BISACODYL 5 MG TABLET PO PRN (16:23)
[2016-10-18] MEDS: NITROGLYCERIN 2% OINT 1 INCH/GM PACK TOP SCH ×4 (01:59→17:40)
[2016-10-18 06:09] LABS: Calcium 8.1 MG/DL (8.5-10.1); Potassium 4.4 MMOL/L (3.5-5.1)
[2016-10-18] MEDS: ASPIRIN EC 81 MG TABLET PO SCH (08:59)
[2016-10-18] MEDS: amLODIPine 10 MG TABLET PO SCH (08:59)
[2016-10-18] MEDS: LISINOPRIL/HCTZ 20-25 MG TABLET PO SCH (08:59)
[2016-10-18] MEDS: PANTOPRAZOLE 40 MG TABLET PO SCH (08:59)
[2016-10-18] MEDS: METOPROLOL TARTRATE 25 MG TABLET PO SCH ×2 (08:59→21:17)
--- NOTE | 2016-10-18 09:56 | Physician Query Form ---
CLICK EDIT DOCUMENT TO SELECT QUERY ANSWER --> OK --> SIGN Genet Olsen RN, CCDS Certified Clinical Market Research Specialist (W) [phone] (F) [phone] [email or web address] PROVIDERS: Make your selection(s) from the choices in EACH section by typing an "x" and enter comments in the comment section. Please use your independent medical judgment in providing your response. This request does not imply that any particular answer is desired or expected. CLINICAL INDICATORS: (Providers should not edit this section) The medical record indicates that the patient was admitted with hypertensive urgency, Creatinine of 1.90# that has increased to 2.60 on the , ATN vs CKD is mentioned and the patient was placed on IVF's. ( ) Acute renal failure only ( ) Acute renal failure with ATN --Please include supportive indicators for the ATN ( ) Acute renal failure with CKD STAGE ( ) ( ) Other, please specify: ( x) Clinically unable to determine Chronic Kidney Disease Stages Source: National Kidney Disease Foundation ( ) Stage I (eGFR > or = 90) ( ) Stage II (eGFR 60 - 89) ( ) Stage III (eGFR 30 - 59) ( ) Stage IV (eGFR 15 - 29) ( ) Stage V (eGFR < 15 or dialysis) COMMENTS: PLEASE ALSO DOCUMENT RESPONSE IN PROGRESS NOTES AND/OR DISCHARGE SUMMARY Use of terms such as suspected, likely, or probable (associated with a specific diagnosis that is being evaluated, monitored, or treated as if it exists) are acceptable and can be restated in the discharge summary if not ruled out. MTDD
[2016-10-18] MEDS: BISACODYL 5 MG TABLET PO PRN (15:25)
--- NOTE | 2016-10-18 20:01 | Hospitalist Progress Note ---
Assessment and Plan - Time spent with patient Time spent with patient: Greater than 30 minutes (1) Hypertensive emergency Status: Acute Assessment and plan: Continue antibiotics. Current Visit: Yes (2) Unilateral vocal cord paralysis Status: Acute Assessment and plan: Defer to Dr Liu. Current Visit: Yes (3) Acute renal failure due to tubular necrosis Status: Acute Assessment and plan: Creatinine kellie compared to yesterday. We will hold the patient's hydrochlorothiazide lisinopril combination med. Current Visit: Yes Hospitalist: Subjective Interval history: No complaints or overnight events. Exam - Constitutional Vitals: Period Temp Pulse Resp BP Sys/Mercado Pulse Ox Last 24 Hr 98.1 F-98.9 F 66-88 16-20 120-138/67-84 91-100 General appearance: no acute distress - Head Head exam: Present: normocephalic, atraumatic - Eye Eye exam: Present: EOMI Pupils: Present: LAUREN - ENT ENT exam: Present: normal exam - Expanded ENT Exam Mouth exam: Present: moist Throat exam: Present: normal inspection - Neck Neck exam: Present: normal inspection - Respiratory Respiratory exam: Present: clear to auscultation bilaterally. Absent: rhonchi, wheezes - Cardiovascular Cardiovascular exam: Present: regular rate and rhythm. Absent: gallop, rubs, systolic murmur - GI/Abdominal GI/Abdominal exam: Present: normal bowel sounds, soft. Absent: distended, firm , guarding, tenderness, rebound - Extremities Exam Extremities exam: Present: normal inspection. Absent: calf tenderness, edema Results - Labs CBC & BMP: 10/16/16 06:13 10/18/16 04:11 Lab Results: I have reviewed the past 24 hour labs Specialty Discharge - Follow Up or Referrals Follow up with: Fabricio Liu DO [Physician] - 2 Weeks
[2016-10-18] MEDS ORDERED: SODIUM CHLORIDE 0.45% 1,000 ML IV SCH (20:30)
[2016-10-19] MEDS: NITROGLYCERIN 2% OINT 1 INCH/GM PACK TOP SCH ×4 (00:20→17:14)
[2016-10-19 05:37] LABS: Basophils % 0.5 % (0.0-0.8); Eosinophils # 0.2 10*3/uL (0.0-0.87); Eosinophils % 3.7 % (0.00-10.9); Immature Granulocytes % 0.3 %; Immature Granulocytes Absolute 0.02 #; Lymphocytes # 1.9 10*3/uL (1.4-4.0); Lymphocytes % 31.1 % (21.2-54.2); Mean Corpuscular HGB Conc 32.4 GM/DL (32-36); Mean Corpuscular Hemoglobin 29 PG (27-34); Mean Corpuscular Volume 90.2 FL (87-102); Mean Platelet Volume 10.4 FL (9.6-12.0); Monocytes # 0.5 10*3/uL (0.11-0.8); Neutrophils # 3.4 10*3/uL (1.4-7.4); Neutrophils % 56.4 % (38.7-73.9); Platelet Count 251 T/CUMM (130-400); Red Cell Distribution Width 15.9 % (9.3-17.3)
[2016-10-19 06:02] LABS: Calcium 8.3 MG/DL (8.5-10.1); Osmolality,Calculated 296.7 MOS/KG (273-304); Potassium 4.3 MMOL/L (3.5-5.1)
[2016-10-19] MEDS: amLODIPine 10 MG TABLET PO SCH (09:18)
[2016-10-19] MEDS: METOPROLOL TARTRATE 25 MG TABLET PO SCH ×2 (09:18→21:21)
[2016-10-19] MEDS: ASPIRIN EC 81 MG TABLET PO SCH (09:18)
--- NOTE | 2016-10-19 13:32 | XRay Report ---
History: Hypertensive emergency. Acute renal failure. Evaluate for airspace disease Date: 10/19/2016 Study: Chest x-ray AP portable Comparison exam: October 15, 2016 The cardiomediastinal silhouette is unremarkable. The pulmonary vasculature is not engorged. There is some mild strandy and hazy bibasilar atelectasis which has developed since the previous study. The lungs are otherwise generally clear. There is no gross pleural effusion. Osseous structures are similar. Impression: Some strandy bibasilar atelectasis has developed since the previous study PROCEDURE INTERPRETED AT [facility] DEPARTMENT OF RADIOLOGY Final Report Signed by: Dr. Josiane Wiseman
--- NOTE | 2016-10-19 14:25 | Hospitalist Progress Note ---
Assessment and Plan - Time spent with patient Time spent with patient: Greater than 30 minutes (1) Dysphagia Status: Acute Assessment and plan: Will ask ST to evaluate. Current Visit: Yes (2) Hypertensive emergency Status: Acute Assessment and plan: Continue medications. Current Visit: Yes (3) Unilateral vocal cord paralysis Status: Acute Assessment and plan: Defer to Dr Liu. Current Visit: Yes (4) Acute renal failure due to tubular necrosis Status: Acute Assessment and plan: Creatinine continues to rise and did not respond to a fluid challenge. Will ask nephrology to evaluate. Current Visit: Yes Hospitalist: Subjective Interval history: States he has trouble swallowing. Exam - Constitutional Vitals: Period Temp Pulse Resp BP Sys/Mercado Pulse Ox Last 24 Hr 98.6 F-99.5 F 76-82 18-22 119-162/71-81 93-97 General appearance: no acute distress - Head Head exam: Present: normocephalic, atraumatic - Eye Eye exam: Present: EOMI Pupils: Present: LAUREN - ENT ENT exam: Present: normal exam - Expanded ENT Exam Mouth exam: Present: moist Throat exam: Present: normal inspection - Neck Neck exam: Present: normal inspection - Respiratory Respiratory exam: Present: clear to auscultation bilaterally. Absent: rhonchi, wheezes - Cardiovascular Cardiovascular exam: Present: regular rate and rhythm. Absent: gallop, rubs, systolic murmur - GI/Abdominal GI/Abdominal exam: Present: normal bowel sounds, soft. Absent: distended, firm , guarding, tenderness, rebound - Extremities Exam Extremities exam: Present: normal inspection. Absent: calf tenderness, edema Results - Labs CBC & BMP: 10/19/16 04:27 10/19/16 04:27 Lab Results: I have reviewed the past 24 hour labs Specialty Discharge - Follow Up or Referrals Follow up with: Fabricio Liu DO [Physician] - 2 Weeks
--- NOTE | 2016-10-19 16:51 | Nephrology Consult Note ---
History of Present Illness Chief complaint: ARF on CRF History of present illness: Mr. Juan is a 76 year old male admitted with severe hypertension. I have seen him as an outpatient in 2013 for hypertension and renal insufficiency. Creatinine was 2.1 at that time. He was lost to follow-up after December 2013. He complained of difficulty swallowing and has been evaluated by ENT. CT of the neck was done 2 days ago. Creatinine is risen since then. His blood pressure is much improved with treatment. Home Medications Medication Instructions Recorded Confirmed Type No Known Home Medications [No 10/16/16 10/16/16 History Known Home Medications] Allergies Allergy/AdvReac Type Severity Reaction Status Date / Time No Known Allergies Allergy Verified 10/15/16 20:28 Medical,Surgical,& Family Hx - Medical History Cardio: History of: Hypertension (Off meds for 3 or 4 months "because they were not working") Endocrine: No history of: Diabetes Mellitus (NIDDM) Rheumatology: History of;: Gout Respiratory: No history of: COPD Renal: History of: Renal Failure - Surgical History Abdominal Surgeries: Surgical HX of: Hernia Repair - Family History Family History: Reports;: Family Cancer (Dad age 75), Family Hypertension Denies;: Family Diabetes, Family Heart Disease, Family Hematology, Family Psychiatric Problems, Family Stroke - Social History Smoking Status: Never smoker Frequency of Alcohol Use: None Type of Drug Use: None Review of Systems 12 point system: reviewed and no additional remarkable complaints except as stated Exam - Vital Signs Vital signs: Period Temp Pulse Resp BP Sys/Mercado Pulse Ox Last 24 Hr 97.7 F-99.5 F 71-91 18-22 119-162/71-97 93-100 Exam: Gen.: Alert and oriented x3. ENT: Pupils equal round reactive to light. EOMs intact. Mucous membranes moist. Neck: Supple. No JVD or bruit. Cardiovascular: Regular rate and rhythm. No murmur rub or gallop Lungs: Clear Abdomen: Soft. Nontender. Positive bowel sounds. No organomegaly Extremities: No edema Results - Labs CBC & BMP: 10/19/16 04:27 10/19/16 04:27 Assessment and Plan (1) Acute on chronic renal failure Status: Acute Assessment and plan: 76-year-old man admitted with: * Hypertension. Blood pressure was severely elevated on admission. He had been off his medications * CRF 3. Baseline creatinine approximately 23 December 2013 * ARF. This is likely due to contrast received with CT scan 2 days ago. Renal function may have worsened slightly due to lower blood pressure as well. Agree with discontinuation of RADHA inhibitor. Agree with IV fluid * Vocal cord paralysis. Followed by ENT Current Visit: Yes (2) Hypertension Status: Acute Current Visit: Yes (3) Chronic kidney disease, stage III (moderate) Status: Acute Current Visit: Yes (4) Near syncope Status: Acute Current Visit: Yes (5) Unilateral vocal cord paralysis Status: Acute Current Visit: Yes Specialty Discharge - Follow Up or Referrals Follow up with: Fabricio Liu DO [Physician] - 2 Weeks
[2016-10-20] MEDS: NITROGLYCERIN 2% OINT 1 INCH/GM PACK TOP SCH ×3 (00:56→11:02)
[2016-10-20 07:04] LABS: Calcium 8.4 MG/DL (8.5-10.1); Osmolality,Calculated 296.7 MOS/KG (273-304); Potassium 4.3 MMOL/L (3.5-5.1)
[2016-10-20] MEDS: amLODIPine 10 MG TABLET PO SCH (09:01)
[2016-10-20] MEDS: ASPIRIN EC 81 MG TABLET PO SCH (09:01)
[2016-10-20] MEDS: METOPROLOL TARTRATE 25 MG TABLET PO SCH (09:01)
[2016-10-20 12:13] VITALS: BP 162/93
--- NOTE | 2016-10-20 13:07 | Discharge Summary ---
Hospital Course - Hospital Course Hospital Course: Mr Juan presented with near syncopal episode found to be severely hypertensive was admitted to the intensive care unit for management of hypertensive urgency with IV antihypertensives. Head CT was unremarkable. Patient had MRI of his brain to evaluate for a stroke which revealed no acute infarcts. Neurology was consulted and recommended an aspirin daily. MRA of his neck revealed no obvious high-grade internal carotid artery stenosis. Echocardiogram revealed normal systolic ejection fraction with grade 1/4 diastolic dysfunction. PAP was 60. The patient complained of dysphasia and ENT was consulted who performed a CT of the neck which revealed left vocal cord paralysis. Bedside laryngoscopy did not reveal a etiology of the left vocal cord fold paralysis. Speech therapy recommended mechanical soft diet. Blood pressure medications were adjusted while hospitalized. By discharge he had met maximum benefit of hospitalization. I spent 38 minutes coordinating this discharge - Time spent with patient Time with patient DS: Greater than 30 minutes Diagnosis - Discharge Diagnosis (1) Dysphagia Status: Acute (2) Hypertensive emergency Status: Acute (3) Unilateral vocal cord paralysis Status: Acute (4) Acute renal failure due to tubular necrosis Status: Acute Specialty Discharge - Follow Up or Referrals Follow up with: Fabricio Dodd DO [Physician] - 11/02/16 1:45 pm Discharge Plan - Discharge Data Disposition: Disch To Home/Self Care Condition at Discharge: Stable Discharge Diet: advance to your usual diet Activity: resume usual activities as tolerated Hygiene: no restrictions - Discharge Medications New amLODIPine [Norvasc] 10 mg PO DAILY #30 tablet Aspirin EC Tab 81 mg PO DAILY #30 tablet Metoprolol Tartrate Tab [Lopressor Tab] 50 mg PO BID #60 tablet - Follow Up or Referral Follow Up: Fabricio Dodd DO [Physician] - 11/02/16 1:45 pm - Forms/Instructions Exam - Constitutional Vitals: Period Temp Pulse Resp BP Sys/Mercado Pulse Ox Last 24 Hr 97.7 F-98.3 F 64-91 18-20 139-163/73-97 95-100 General appearance: normal weight, no acute distress - Head Head exam: Present: normal inspection, normocephalic, atraumatic - Eye Eye exam: Present: EOMI Pupils: Present: LAUREN - ENT ENT exam: Present: normal exam - Neck Neck exam: Present: normal inspection - Respiratory Respiratory exam: Present: clear to auscultation bilaterally. Absent: accessory muscle use, prolonged expiratory phase, wheezes - Cardiovascular Cardiovascular exam: Present: regular rate and rhythm. Absent: bradycardia, irregular rhythm, systolic murmur - GI/Abdominal GI/Abdominal exam: Present: normal bowel sounds. Absent: ascites, distended, hypoactive bowel sounds, tenderness - Extremities Exam Extremities exam: Present: normal inspection. Absent: full ROM Discharge Results Labs on day of discharge: Labs from last 24 hours 10/20/16 06:24 Sodium 145 Potassium 4.3 Chloride 108 H Carbon Dioxide 26 Anion Gap 15.3 H BUN 39 H Creatinine 2.10 H GFR Calculation 44 BUN/Creatinine Ratio 18.00 Glucose 92 Calculated Osmolality 296.7 Calcium 8.4 L DS: Provider Date of admission: 10/15/16 23:58 Primary care physician: . No PCP Attending physician on admission: Amilcar Rock DO Consults: 10/16/16 09:17 Consult to Occupational Therapy [CONS] Routine Reason for Occupational Therapy: Evaluate and Treat Consult to Physical Therapy [CONS] Routine Reason for Physical Therapy: Evaluate and Treat 10/16/16 09:21 Consult to Physician [CONS] Routine Comment: Trouble swallowing Consulting Provider: Fabricio Dodd Person Notified: dr dodd clinic staff Date Notified: 10/16/16 Time Notified: 10:15 10/16/16 10:06 Consult to Physician [CONS] Routine Comment: ?stroke Consulting Provider: Corky Barker Person Notified: dr barker office voicemail Date Notified: 10/16/16 Time Notified: 10:13 10/19/16 08:56 Consult to Physician [CONS] Routine Comment: JIAN Consulting Provider: Gianni Lawrence Consulting Provider Notified: Yes When should Consulting Provider be notified: Now Consult to Specialist Group: Nephrology When should Consulting Provider be notified: Now Person Notified: DARIN Date Notified: 10/19/16 Time Notified: 15:15 Discharging clinician: Thea Jacobson MD Expected date of discharge: 10/20/16
--- NOTE | 2016-10-20 18:12 | Nephrology Progress Note ---
Nephrology - PN: Subj Interval history: No new symptoms today Exam (PN)-Nephrology - Vital Signs Vital signs: Period Temp Pulse Resp BP Sys/Mercado Pulse Ox Last 24 Hr 97.7 F-98.3 F 64-75 18-20 139-163/73-93 95-100 Exam: ENT: Normal Cardiovascular: Regular rate and rhythm. No murmur rub or gallop Lungs: Clear Extremities: No edema - Lab 10/19/16 04:27 10/20/16 06:24 Most recent lab results Calcium 8.4 MG/DL (8.5-10.1) L 10/20/16 06:24 Magnesium 2.5 MG/DL (1.8-2.4) H 10/17/16 04:40 Assessment and Plan (1) Acute on chronic renal failure Status: Acute Assessment and plan: 76-year-old man admitted with: * Hypertension. Blood pressure now controlled * CRF 3. Baseline creatinine approximately 23 December 2013 * ARF. Resolved * Vocal cord paralysis. Followed by ENT (2) Hypertension Status: Acute (3) Chronic kidney disease, stage III (moderate) Status: Acute (4) Near syncope Status: Acute (5) Unilateral vocal cord paralysis Status: Acute Specialty Discharge - Follow Up or Referrals Follow up with: Fabricio Liu DO [Physician] - 11/02/16 1:45 pm
== END 2016-10-20 15:15 | disposition home or self-care (01) | DRG 304 ==
LOC: N.ED 20:22 → SUATTDRO 23:58 → N.EDINP 23:59 → N.CC 10-16 00:57 → N.4E 10-17 13:21
PROVIDERS: ADMIT Internal Medicine; ATTEND Internal Medicine